=== PATIENT | male | born 1975 | race Caucasian/White ===

== ENCOUNTER → 2019-01-19 | Outpatient (CLI) | payer OTHER ==
[2013-05-30 12:12] VITALS: BP 113/78
[~2019-01-19] MED LIST: ADVIL200 MG PO
[2019-01-19 17:36] LABS: EOS # 0.2 (0.04-0.40); EOS % 3.1 % (0.0-4.0); HEMOGLOBIN 14.3 g/dL (13.5-18.0); LYMPH# 1.6 (1.50-4.00); MEAN CELL VOLUME 83 fl (78-100); MEAN CORPUSCULAR HEMOGLOBIN 28 pg (27-31); MEAN CORPUSCULAR HGB CONC 33 g/dL (33-37); MEAN PLATELET VOLUME 10.3 fl (7.4-10.4); MONO # 0.4 (0.20-0.80); NEU # 2.7 (1.40-6.50); PLATELET COUNT 218 K/mm3 (130-400); RED BLOOD COUNT 5.17 M/mm3 (4.20-5.60); RED CELL DISTRIBUTION WIDTH 13.2 % (11.5-14.5); WHITE BLOOD COUNT 4.9 K/mm3 (4.8-10.8)
[2019-01-19 17:48] LABS: ALBUMIN 4.3 g/dL (3.5-5.0)
[2019-01-19 17:49] LABS: CALCIUM 9.7 mg/dL (8.3-10.5)
[2019-01-19 17:50] LABS: TOTAL PROTEIN 6.9 g/dL (6.4-8.3)
[2019-01-19 17:52] LABS: TOTAL BILIRUBIN 0.4 mg/dL (0.2-1.2)
== END ==
LOC: LAB 16:42
PROVIDERS: Physician Assistant
DX: R10.84 Generalized abdominal pain (principal)